=== PATIENT | male | born 1960 | race Caucasian/White ===

== ENCOUNTER → 2021-07-03 | Day surgery (SDC) | payer MEDICARE ==
--- NOTE | 2021-06-27 14:18 | NUR ---
PER MD ERWIN OFFICE SCHEDULING SHEET, PT ON BLOOD THINNERS AND CARDIO TO BRIDGE.
[~2021-07-03] VITALS: Ht 180.3 cm; Wt 230.1 kg
[~2021-07-03] MED LIST: ALLOPURINOL300 MG PO; CELEXA10 MG PO; DIOVAN80 MG PO; ENOXAPARIN150 MG/1 M IJ; FOLIC ACID1 MG PO; LIPITOR40 MG PO; LOPRESSOR50 MG PO; LOW DOSE ASPIRI81 MG PO; MAG-OXIDE 400M400 MG PO; POTASSIUM20 MEQ/11 PO; TORSEMIDE20 MG PO; VITAMIN B-12250 MCG PO; WARFARIN SODIUM5 MG PO
[2021-07-03 07:55] LABS: HCT 39.9 % (42.0-52.0); MCHC 30.1 g/dL (32.0-36.0); MCV 89.7 fL (78.0-100.0); MPV 10.1 fL (6.0-9.5); RBC 4.45 M/uL (4.70-6.00); RDW 16.3 % (11.5-14.0); WBC 6.3 K/uL (4.0-10.5)
[2021-07-03 08:10] LABS: INR 1.21 (0.9-1.2); PROTHROMBIN TIME 14.7 SECONDS (11.8-13.4)
[2021-07-03 08:46] LABS: ALBUMIN 3.8 g/dL (3.4-5.0); BILIRUBIN - TOTAL 0.6 mg/dL (0.2-1.0); CREATININE 1.09 mg/dL (0.67-1.17); GLOBULIN (CALCULATION) 3.4 g/dL; POTASSIUM 4.2 mmol/L (3.5-5.1); TOTAL PROTEIN 7.2 g/dL (6.4-8.2)
== END | disposition home or self-care (01) ==
LOC: FAS 06:53
PROVIDERS: Surgery
DX: D12.6 Benign neoplasm of colon, unspecified (principal); R19.5 Other fecal abnormalities; I11.0 Hypertensive heart disease with heart failure; I50.9 Heart failure, unspecified; G47.30 Sleep apnea, unspecified; Z87.891 Personal history of nicotine dependence; Z90.49 Acquired absence of other specified parts of digestive tract; Z95.2 Presence of prosthetic heart valve; Z79.01 Long term (current) use of anticoagulants; Z79.82 Long term (current) use of aspirin
CPT/HCPCS: 36415; 80053; 85610; J0690; J1610; J2704; J7120